=== PATIENT | female | born 1980 | race African-American/Black ===

== ENCOUNTER 2019-06-22 16:27 | Emergency (ER) | payer OTHER ==
[~2019-06-22] VITALS: Ht 149.9 cm; Wt 54.4 kg
[2019-06-22 16:28] VITALS: Ht 149.9 cm; Wt 54.4 kg
[2019-06-22 17:00] VITALS: BP 162/83
== END 2019-06-22 17:00 | disposition other institution (70) ==
LOC: ED 16:27
DX: Z02.89 Encounter for other administrative examinations (principal)